=== PATIENT | female | born 1995 | race Caucasian/White ===

== ENCOUNTER 2018-08-28 18:15 | Emergency (ER) | payer SELFPAY ==
[2018-08-28 18:37] VITALS: BP 116/81; PULSE 80; RESP 18; TEMP 98.1; O2SAT 98
--- NOTE | 2018-08-28 18:56 | C.PDOC ---
History Of Present Illness 23 year old female presents to the ED for evaluation. Patient reports having unprotected sexual intercourse five days ago and is requesting "the day after pill." Patient denies abdominal pain, nausea, vomiting. Time Seen by Provider: 08/28/18 18:48 Chief Complaint (Nursing): Medical Clearance History Per: Patient History/Exam Limitations: no limitations Onset/Duration Of Symptoms: Days Current Symptoms Are (Timing): Still Present Additional History Per: Patient Past Medical History Reviewed: Historical Data, Nursing Documentation, Vital Signs Vital Signs: Last Vital Signs Temp 98.1 F 08/28/18 18:34 Pulse 80 08/28/18 18:34 Resp 18 08/28/18 18:34 BP 116/81 08/28/18 18:34 Pulse Ox 98 08/28/18 18:34 - Medical History PMH: No Chronic Diseases Surgical History: No Surg Hx Family History: States: Unknown Family Hx - Social History Hx Alcohol Use: No Hx Substance Use: No - Immunization History Hx Tetanus Toxoid Vaccination: No Hx Influenza Vaccination: No Hx Pneumococcal Vaccination: No Review Of Systems Gastrointestinal: Negative for: Nausea, Vomiting, Abdominal Pain Physical Exam - Physical Exam Appears: Non-toxic, No Acute Distress Skin: Normal Color, Warm, Dry Head: Atraumatic, Normacephalic Eye(s): bilateral: Normal Inspection Oral Mucosa: Moist Neck: Supple Chest: Symmetrical, No Deformity Extremity: Normal ROM Neurological/Psych: Oriented x3, Normal Speech, Normal Cognition ED Course And Treatment O2 Sat by Pulse Oximetry: 98 (on RA) Pulse Ox Interpretation: Normal Medical Decision Making Medical Decision Making: Patient is requesting [facility] follow up so she can get started on contraceptive. Patient stable for discharge and advised to f/u with PMD/clinic for further evaluation. Disposition Counseled Patient/Family Regarding: Need For Followup - Disposition Referrals: [facility] [Outside] Disposition: HOME/ ROUTINE Disposition Time: 18:54 Condition: STABLE Forms: [facility] (Ivorian), General Discharge Instructions - POA Present On Arrival: None - Clinical Impression Clinical Impression: Medical assessment - Scribe Statement The provider has reviewed the documentation as recorded by the Scribe (Samra Patel) Provider Attestation: All medical record entries made by the Scribe were at my direction and personally dictated by me. I have reviewed the chart and agree that the record accurately reflects my personal performance of the history, physical exam, medical decision making, and the department course for this patient. I have also personally directed, reviewed, and agree with the discharge instructions and disposition.
== END 2018-08-28 19:17 | disposition home or self-care (01) ==
LOC: C.ER 18:15
DX: Z00.00 Encounter for general adult medical examination without abnormal findings (principal)